=== PATIENT | female | born 1965 | race Caucasian/White ===

== ENCOUNTER 2019-04-21 07:15 | Outpatient (CLI) | payer BC ==
--- NOTE | 2019-04-21 14:23 | EKG ---
Test Reason : Blood Pressure : / mmHG Vent. Rate : 060 BPM Atrial Rate : 060 BPM P-R Int : 156 ms QRS Dur : 084 ms QT Int : 412 ms P-R-T Axes : 035 051 029 degrees QTc Int : 412 ms Normal sinus rhythm Normal ECG No previous ECGs available Confirmed by DR. Jimi SALAS ([id number]) on 04/21/2019 2:23:39 PM Referred By: CHRISTIN Confirmed By:DR. Jimi SALAS
== END 2019-04-21 07:16 | disposition home or self-care (01) ==
LOC: LABBT 07:15
PROVIDERS: ATTEND Specialist
DX: Z01.818 Encounter for other preprocedural examination (principal); E66.01 Morbid (severe) obesity due to excess calories
CPT/HCPCS: 93005; 93010

== ENCOUNTER 2019-04-21 10:00 | Inpatient (IN) | payer BC ==
[2019-04-21 10:20] VITALS: BMI 41.2
[2019-04-27] MEDS ORDERED: Fentanyl 100 MCG/2 ML VIAL ONE ×3 (06:05→10:01)
[2019-04-27] MEDS ORDERED: Ketorolac Tromethamine 30 MG/ML VIAL ONE (06:36)
[2019-04-27] MEDS ORDERED: Sodium Chloride 0.9% 100 ML ONE (06:36)
[2019-04-27] MEDS ORDERED: cefOXitin 2 GM VIAL ONE (06:36)
[2019-04-27] MEDS ORDERED: Bupivacaine HCl 0.5%/Epinephrine 1:200,000/PF 30 ml Vial ONE (06:49)
[2019-04-27] MEDS ORDERED: Promethazine HCl 25 MG/ML VIAL SLOW IVP PRN (07:02)
[2019-04-27] MEDS ORDERED: Promethazine HCl 25 MG/ML VIAL IM PRN ×2 (07:02→11:33)
[2019-04-27] MEDS ORDERED: Ondansetron HCl/PF 4 MG/2 ML Vial IVP PRN (07:02)
[2019-04-27] MEDS ORDERED: Scopolamine 1.5 mg/72 hour Patch ONE (07:02)
[2019-04-27] MEDS ORDERED: Midazolam HCl 2 mg/2 ml Vial ONE (07:02)
[2019-04-27] MEDS ORDERED: Promethazine HCl 25 MG/ML VIAL ONE (10:44)
[2019-04-27] MEDS ORDERED: Ondansetron PF 4 MG/2 ML Vial IVP PRN (11:33)
[2019-04-27] MEDS ORDERED: Dextrose 50% Abboject 50 ML SYRINGE SLOW IVP PRN (11:33)
[2019-04-27] MEDS ORDERED: diphenhydrAMINE 50 MG/ML VIAL IVP PRN (11:33)
[2019-04-27] MEDS ORDERED: hydrALAZINE 20 MG/ML VIAL SLOW IVP PRN (11:33)
[2019-04-27] MEDS ORDERED: Morphine 4 MG/ML VIAL SLOW IVP PRN ×2 (11:33→13:27)
[2019-04-27] MEDS ORDERED: Dextrose 5% in Water 1,000 ML IV PRN (11:33)
[2019-04-27] MEDS ORDERED: Morphine 2 MG/ML SYRINGE SLOW IVP PRN ×2 (11:33→13:26)
[2019-04-27] MEDS: Ketorolac Tromethamine 30 MG/ML VIAL IVP SCH ×3 (12:22→23:48)
[2019-04-27] MEDS: Acetaminophen 1,000 MG in Premix Bag 1 BAG IVPB SCH ×3 (12:23→23:48)
[2019-04-27] MEDS ORDERED: Sodium Chloride 0.9% (PF) 10 ML VIAL FS PRN (12:27)
[2019-04-27] MEDS ORDERED: Pantoprazole 40 MG VIAL IVP SCH (12:30)
[2019-04-27] MEDS: D5 1/2 NS w/20 mEq KCL 1,000 ML IV SCH ×2 (13:14→20:34)
[2019-04-27] MEDS ORDERED: Enoxaparin Sodium 40 MG/0.4 ML SYRINGE SC SCH (21:00)
[2019-04-28 03:43] VITALS: TEMP 98.4
[2019-04-28 05:16] LABS: #Lymphocytes 1.9 thou/uL (1.20-3.40); #Neutrophils 6.6 thou/uL (1.40-6.50); %Basophils 0.2 % (0.0-1.0); %Eosinophils 0.2 % (0.0-10.0); %Lymphocytes 20.1 % (21.0-51.0); %Monocytes 10.2 % (0.0-10.0); %Neutrophils 69.2 % (42.0-75.0); Hemoglobin 12.6 g/dL (12.0-16.0); Mean Corpuscular HGB CONC 34.2 g/dL (32.0-36.0); Mean Corpuscular Hemoglobin 30.6 pg (27.0-31.0); Mean Corpuscular Volume 89.6 fL (78.0-98.0); Mean Platelet Volume 7.6 fL (7.4-10.4); Platelet Count 247 thou/uL (130-400); RBC Distribution Width 11.1 % (11.5-14.5); White Blood Cell (WBC) Count 9.5 thou/uL (4.8-10.8)
[2019-04-28 05:39] LABS: Anion Gap 10 mmol/L (10-20); BUN (Urea Nitrogen) 11 mg/dL (9.8-20.1); Calc. Creatinine Clearance 139 mL/min (70-130); Calcium 8.5 mg/dL (7.8-10.44); Carbon Dioxide 27 mmol/L (22-29); Chloride 106 mmol/L (98-107); Estimated GFR-MDRD 73; Glucose 120 mg/dL (70-105); Potassium 3.9 mmol/L (3.5-5.1); Sodium 139 mmol/L (136-145)
[2019-04-28] MEDS: Acetaminophen 1,000 MG in Premix Bag 1 BAG IVPB SCH (05:49)
[2019-04-28] MEDS: Ketorolac Tromethamine 30 MG/ML VIAL IVP SCH ×2 (05:50→11:47)
[2019-04-28] MEDS: D5 1/2 NS w/20 mEq KCL 1,000 ML IV SCH ×2 (05:53→15:07)
[2019-04-28] MEDS ORDERED: Pantoprazole 40 MG VIAL IVP SCH (09:00)
[2019-04-28 11:44] VITALS: BP 134/72
--- NOTE | 2019-04-28 23:50 | OP ---
DATE OF PROCEDURE: 04/27/2019 PREOPERATIVE DIAGNOSIS: Morbid obesity. POSTOPERATIVE DIAGNOSIS: Morbid obesity. PROCEDURE PERFORMED: Laparoscopic vertical sleeve gastrectomy using the ViSiGi device. ANESTHESIA: General endotracheal. PARENT AIDE: Reed Torrez, Medical Student. INDICATIONS: The patient is a 53-year-old morbidly obese female. She has undergone preoperative evaluation and education, presents at this time for sleeve gastrectomy. DESCRIPTION OF PROCEDURE: Informed consent was obtained. The patient was taken to the operating room where general endotracheal anesthesia was obtained with the patient in supine position. Abdomen was prepped with ChloraPrep and draped in sterile fashion. Local anesthetic was infiltrated and 5 mm supraumbilical incision was created through which Veress needle was passed to the peritoneal cavity and pneumoperitoneum established using carbon dioxide up to a pressure of 15 mmHg. A 5 mm trocar port was passed through this same incision. Laparoscopic camera was passed through this port. Under direct vision, 4 additional ports were placed including bilateral 5 mm subcostal ports, a 12 mm right paramedian port and a 15 mm left paramedian port. A 5 mm epigastric incision was created through which Jesusita retractor was passed into the abdominal cavity and used to retract the left lobe of the liver. The patient was placed into reverse Trendelenburg position. The ViSiGi device was advanced within the stomach and used to decompress this. The pylorus was identified and beginning 4 cm proximal to the pylorus, the omentum and vascular tissue along the greater curvature was divided using the LigaSure in an ascending fashion up to the angle of His. All posterior adhesions were mobilized. The short gastric vessels were carefully divided and then hemostasis was maintained using the LigaSure. Once this was completely mobilized, the ViSiGi was carefully positioned at the level of the pylorus and placed to suction, which was clearly defining the lesser curvature of the stomach. The gastrectomy was then performed using a series of fires of the [place] stapler using a green load followed by a gold load and a series of blue loads until completion of the gastrectomy. The ViSiGi along the lesser curvature was used as a size 36 bougie to guide in the gastric division. Care was taken to avoid narrowing the incisura or the gastroesophageal junction. The integrity of the staple line was then assessed by insufflating gas through the ViSiGi while irrigating along the staple line. There was no evidence of an air leak. There was no evidence of bleeding along the staple line. The resected stomach was then removed through the 15 mm port and the fascia was closed with 0 Vicryl suture using a GraNee needle. I then closed the 12 mm port also using the GraNee needle and 0 Vicryl suture. The Jesusita retractor was removed. All ports and instruments were removed under direct vision. All irrigant was aspirated. Pneumoperitoneum was carefully evacuated. 0.25% Marcaine with epinephrine was infiltrated into each port site. Skin edges approximated with 4-0 Monocryl subcuticular suture. Dermabond was placed externally. There were no complications. The patient tolerated the procedure well and was taken to recovery room in stable condition. FINDINGS: The patient had a large right upper quadrant incision from a prior cholecystectomy. There were adhesions to the anterior abdominal wall that were easily taken down. More concerning was the adhesions between the duodenum and the liver as well as the distal stomach. These were carefully taken down in order to mobilize the duodenum and stomach to the left into their normal anatomic position. Following mobilization of all adhesions, the remainder of the operation was essentially uneventful. Hemoclips were placed along the staple line to ensure appropriate hemostasis. There were no complications. Blood loss was negligible. The patient tolerated the procedure well and was taken to recovery room in stable condition. Job ID: [id number]
== END 2019-04-28 15:04 | disposition home or self-care (01) | DRG 621 ==
LOC: SURG A 04-27 05:51 → SURG B 04-27 12:05
PROVIDERS: ADMIT Specialist; ATTEND Specialist
PROC: 0DB64Z3 Excision of Stomach, Percutaneous Endoscopic Approach, Vertical (ICD-10-PCS; principal; 2019-04-27)
DX: E66.01 Morbid (severe) obesity due to excess calories (principal); Z68.41 Body mass index [BMI] 40.0-44.9, adult; I10 Essential (primary) hypertension; E78.5 Hyperlipidemia, unspecified; J45.909 Unspecified asthma, uncomplicated; Z87.891 Personal history of nicotine dependence; Z90.710 Acquired absence of both cervix and uterus
CPT/HCPCS: 36415; 80048; 85025; 88307; 88312; 94760; C9113; J0131; J0360; J0670; J0694; J1650; J1885; J2250; J2405; J2550; J3010; J3490